=== PATIENT | male | born 1980 | race Caucasian/White ===

== ENCOUNTER 2019-04-03 19:54 | Emergency (ER) | payer OTHER, SELFPAY ==
[2019-04-03 20:01] VITALS: BP 152/111; PULSE 102; RESP 16; TEMP 37.1; O2SAT 98; BMI 20.5
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
[2019-04-03 22:12] VITALS: PULSE 98; RESP 16; O2SAT 99
== END 2019-04-03 22:15 | disposition home or self-care (01) ==
PROVIDERS: Emergency Provider Emergency Medicine; Family Provider Obstetrics & Gynecology Gynecology; PCP Obstetrics & Gynecology Gynecology
DX: S01.01XA Laceration without foreign body of scalp, initial encounter (principal); S50.312A Abrasion of left elbow, initial encounter; S20.419A Abrasion of unspecified back wall of thorax, initial encounter; V80.52XA Occupant of animal-drawn vehicle injured in collision with other specified motor vehicle, initial encounter; Y93.9 Activity, unspecified; Y92.9 Unspecified place or not applicable
CPT/HCPCS: 12001; 70450; 99284